=== PATIENT | female | born 2000 | race Caucasian/White ===

== ENCOUNTER 2023-06-02 14:52 | Outpatient (CLI) | payer MEDICAID ==
[~2023-06-02] VITALS: Ht 162.6 cm; Wt 56.7 kg
--- NOTE | 2023-06-02 15:00 | NUR ---
1500 PT AMBULATORY TO UNIT WITH GRANDPARENTS. SENT OVER FROM OFFICE DUE TO POOLING OF FLUID AFTER EXAM. SVE AT THIS TIME, CERVIX CLOSED. AMNITRACE POSITIVE FOR AMNITOTIC FLUID. ROM+ COLLECTED AT THIS TIME AND SENT TO LAB. PT TOLERATED EXAM WELL. REPORTS CRAMPING AT 2100 06/01/2023, FOLLOWED BY A GUSH OF FLUID. HAS NOT HAD ANY CRAMPING SINCE BUT CONTINUES TO LEAK FLUID. POSITIVE MOVEMENT. DISCUSSED THAT IF PT DID SROM, SHE WOULD LIKELY BE TRANSFERED TO A HIGHER CARE FACILITY, PT EXPRESSES UNDERSTANDING.
[2023-06-02] MEDS ORDERED: QUALITY CHOICE1 TA7 PO (15:28)
[2023-06-02] MEDS ORDERED: MIRALAX510G PO (15:29)
[2023-06-02 15:30] VITALS: BP 123/74; PULSE 96
[2023-06-02] MEDS ORDERED: CRANBERRY500 M3 PO (15:30)
[2023-06-02] MEDS ORDERED: HEMORRHOIDAL HYGI50% TP (15:38)
--- NOTE | 2023-06-02 16:30 | NUR ---
9484 AT BEDSIDE DISCUSSING TEST RESULTS. DISCUSSED TRFR TO [place] FOR DELIVERY. US AT THIS TIME, B[facility]Y [facility]REE[facility]. DISCUSSED RISK VS BENEFIT OF TRFR AND DELIVER. PT AGREES TO TRFR.
[2023-06-02 17:30] VITALS: TEMP 98.4
[2023-06-02 18:00] VITALS: BP 109/66; PULSE 82
[2023-06-02 18:08] LABS: HEMATOCRIT 38.6 % (37.0-47.0); HEMOGLOBIN 13.6 g/dl (12.5-16.0); MEAN CELL VOLUME 90 fl (80.0-100.0); MEAN CORPUSCULAR HEMOGLOBIN 32 pg (27-31); MEAN CORPUSCULAR HGB CONC 35 g/dl (33.0-37.0); MEAN PLATELET VOLUME 9.6 fl (7.4-10.4); PLATELET COUNT 379 K/mm3 (130-400); RED BLOOD COUNT 4.31 M/mm3 (4.10-5.30); REDCELL DISTRIBUTION WIDTH-CV 12.7 % (11.5-14.5)
[2023-06-02 18:28] LABS: ALBUMIN 3.2 gm/dL (3.5-5.0); BILIRUBIN,TOTAL 0.2 mg/dL (0.2-1.2); CALCIUM 9.2 mg/dL (8.4-10.2); CREATININE, serum 0.55 mg/dL (0.57-1.11); POTASSIUM 3.7 mmol/L (3.5-4.5); TOTAL PROTEIN 6.8 gm/dL (6.2-8.1)
--- NOTE | 2023-06-02 18:35 | NUR ---
Explained to pt and family about Terbutaline: purpose and side effects, verbalize understanding. IV gent started.
--- NOTE | 2023-06-02 18:35 | NUR ---
Pt on strict bedrest r/t increaed risk of fall r/t 'legallly blind', IV fluids infusing, and on EFM. Family attentive at bedside. Pt and family verbalize understanding that pt is not to get out of bed without staff assistance.
--- NOTE | 2023-06-02 19:10 | NUR ---
[facility] transport team in room, applying monitors. report given. 1924 Off unit via transport stretcher.
--- NOTE | 2023-06-02 19:36 | NUR ---
Report called to [facility] charge nurse.
== END 2023-06-02 19:25 | disposition critical access hospital (66) ==
LOC: LDRO 14:52
PROVIDERS: Student in an Organized Health Care Education/Training Program
DX: Z34.93 Encounter for supervision of normal pregnancy, unspecified, third trimester (principal); Z3A.31 31 weeks gestation of pregnancy
CPT/HCPCS: J0702; J0737; J1580; J3105; J7120